=== PATIENT | male | born 1995 | race Caucasian/White ===

== ENCOUNTER 2020-02-21 23:52 | Emergency (ER) | payer BC, SELFPAY ==
[2020-02-22] VITALS (8 sets, daily range): BP systolic 122–153; BP diastolic 90–106; PULSE 66–86; RESP 16–29; TEMP 36.4; O2SAT 96–100
--- NOTE | 2020-02-22 00:15 | DI.RAD_ITS ---
EXAM: XR FOOT RT LIMITED CLINICAL HISTORY: ?foreign body. TECHNIQUE: 2D digital imaging was performed. COMPARISON: No exams were available for comparison FINDINGS: BONES: No acute fracture is present. No bony destructive lesion is seen. JOINTS: No dislocation present. SOFT TISSUE: Normal. No radiopaque foreign body. IMPRESSION: Unremarkable radiographs of the right foot. DATA REPOSITORY: RADIATION DOSE DELIVERED:
[2020-02-22 00:16] LABS: Abs Immature Grans 0.03 k/cumm (0.0-0.09); HCT 43.5 % (40.0-50.0); HGB 15.4 g/dL (13.5-17.5); Mean Corp. HGB Concentration 35.4 g/dL (32.0-36.0); Mean Corpuscular Hemoglobin 30.4 pg (27.0-33.0); Mean Corpuscular Volume 85.8 fL (80-95); Mean Platelet Volume 10.3 fL (8.0-11.0); Platelet Count 301 x1000/uL (130-400); RBC 5.07 m/cumm (4.50-6.00); RBC Distribution Width 11.8 % (11.8-14.1); White Blood Cell Count 10.18 k/cumm (4.4-10.8)
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
[2020-02-22] MEDS: fentaNYL 100 MCG/2 ML VIAL IVP ×3 (00:24→02:16)
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
[2020-02-22 00:27] LABS: Absolute Lymphocyte Count 7.02 k/cumm (1.2-3.4); Absolute Monocyte Count 0.61 k/cumm (0.11-0.7); Absolute Neutrophil Count 2.34 k/cumm (1.2-6.7); Atypical Lymphocytes % 1; Diff Comment Manual Differential; RBC Morphology Normal
[2020-02-22 00:29] LABS: PTT Activated 18.5 sec (21.0-31.4); Prothrombin Time 10.2 sec (9.3-11.0)
[2020-02-22 00:30] LABS: ALT 48 U/L (16-63); AST 29 U/L (15-37); Albumin 3.8 g/dL (3.4-5.0); Alkaline Phosphatase 92 U/L (46-116); Anion Gap 9.5 mmol/L (3-11); BUN 20 mg/dL (7-18); Bilirubin, Total 1.1 mg/dL (0.2-1.0); CO2 27.5 mmol/L (21.0-32.0); CREATININE 1.79 mg/dL (0.70-1.30); Calcium 8.9 mg/dL (8.5-10.1); Chloride 104 mmol/L (98-107); Glucose 171 mg/dL (74-106); Magnesium 2.1 mg/dL (1.8-2.4); Potassium 4.1 mmol/L (3.5-5.1); Sodium 141 mmol/L (136-145); Total Protein 7.1 g/dL (6.4-8.2)
[2020-02-22 00:31] LABS: ETHANOL BLOOD < 3.0 mg/dL (<3)
--- NOTE | 2020-02-22 00:44 | DI.VRAD_ITS ---
PROCEDURE INFORMATION: Exam: XR Left Foot Exam date and time: 02/22/2020 12:27 AM Age: 24 years old Clinical indication: Injury or trauma; Injury history: ? Fb, glass after punching a window; Initial encounter; Laceration; Foot; Right; Foreign body involvement not specified; Injury date: 02/22/20; Injury details: ? Fb S/P punching window TECHNIQUE: Imaging protocol: XR Left foot. Views: 1 or 2 views. COMPARISON: No relevant prior studies available. FINDINGS: Bones/joints: No fractures. Normal alignment is maintained in the midfoot, hindfoot, and forefoot. Joint spaces are well-maintained. No blastic or lytic lesions. No periostitis or osteolysis. No gross ankle joint effusion. No hindfoot coalition. Soft tissues: No gross soft tissue abnormalities. No radiopaque foreign bodies. Other findings: Normal mineralization. IMPRESSION: 1. No acute findings. 2. No radiopaque foreign bodies are identified. Dictated and Authenticated by: Palmer Maddox MD. Ordering:DEN De Luna MD
--- NOTE | 2020-02-22 00:47 | DI.VRAD_ITS ---
PROCEDURE INFORMATION: Exam: XR Right Forearm Exam date and time: 02/22/2020 12:24 AM Age: 24 years old Clinical indication: Injury or trauma; Injury history: Laceration, ? fb S/P punching window; Initial encounter; Arm, lower; Right; Injury date: 02/22/20; Patient HX: Pain and bleeding S/P punching window TECHNIQUE: Imaging protocol: XR Right forearm. Views: 2 views. COMPARISON: No relevant prior studies available. FINDINGS: Bones/joints: Proximal and distal radial ulnar alignment is normal. Elbow joint alignment is normal. No fractures. No blastic or lytic lesions. No elbow joint effusion. No periostitis or osteolysis. Soft tissues: Soft tissue air and swelling in the lateral aspect of the proximal forearm extending into the volar soft tissues of the elbow consistent with soft tissue laceration. No radiopaque foreign bodies are identified. There are few extrinsic densities over this region likely related to bandaging material. Other findings: Normal mineralization. Carpal relationships are normal. IMPRESSION: 1. No foreign bodies are identified radiographically. 2. Soft tissue laceration in the medial to volar proximal forearm and elbow with overlying dressing material. No intra-articular air to suggest joint penetration. No bony injuries. Dictated and Authenticated by: Palmer Maddox MD. Ordering:DEN De Luna MD
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
[2020-02-22] MEDS: HYDROmorphone 2 MG/ML VIAL 1 MG IVP ×2 (01:18→01:25)
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
== END 2020-02-22 02:20 | disposition short-term general hospital (02) ==
LOC: ER 02-22 01:43
PROVIDERS: Emergency Provider Emergency Medicine
DX: S51.811A Laceration without foreign body of right forearm, initial encounter (principal); S90.811A Abrasion, right foot, initial encounter; S55.911A Laceration of unspecified blood vessel at forearm level, right arm, initial encounter; W25.XXXA Contact with sharp glass, initial encounter; F51.5 Nightmare disorder
CPT/HCPCS: 36415; 80053; 86850; 86900; 86901; 90471; 96365; 96375; 96376; 99252; 99285; 73090; 73620; 80320; 83735; 85025; 85610; 85730; J0690; J3010

== ENCOUNTER 2021-08-01 11:27 | Emergency (ER) | payer SELFPAY ==
[2021-08-01 11:38] VITALS: BP 171/81; PULSE 69; RESP 18; TEMP 36.7; O2SAT 99
--- NOTE | 2021-08-01 12:15 | DI.RAD_ITS ---
Exam(s) XR FOOT LT COMPLETE EXAM: XR FOOT LT COMPLETE CLINICAL HISTORY: dropped manhole cover, mostly great toe. TECHNIQUE: 2D digital imaging was performed. COMPARISON: CR,XR XR FOOT RT LIMITED from 02/22/2020 FINDINGS: BONES: Nondisplaced fracture tuft of distal phalanx of the great toe. No additional fractures. No b mark destructive lesion is seen. JOINTS: No dislocation present. SOFT TISSUE: Normal. IMPRESSION: Nondisplaced fracture distal phalanx great toe. DATA REPOSITORY: RADIATION DOSE DELIVERED:
--- NOTE | 2021-08-01 12:29 | ED.GENADUL_ITS ---
Discharge Plan Disposition Patient Disposition: HOME Condition: Stable Discharge Details Clinical Impression: Fracture of toe, Subungual hematoma Primary Care Provider: Dona Andrews ED Provider: Abel Shaffer Home Meds and New Rx's Prescriptions: Continued clonazepam 0.5 mg tablet 0.5 mg PO QHS PRN (Reason: insomnia) Qty: 30 RF: 0 melatonin 10 mg capsule 20 mg PO HS PRNRF: 0 cholecalciferol (vitamin D3) 350 mcg (14,000 unit) capsule 350 mcg PO ONCE RF: 0 ascorbic acid (vitamin C) 500 mg tablet 500 mg PO DAILY RF: 0 acetaminophen [Acetaminophen Extra Strength] 500 mg tablet 1,000 mg PO Q6H PRNRF: 0 aspirin [Adult Low Dose Aspirin] 81 mg tablet,delayed release (DR/EC) 81 mg PO DAILY RF: 0 Discharge Instructions Instructions: Subungual Hematoma (ED), Toe Fracture (ED) Additional Instructions: [id number] Tylenol and/or Motrin as directed for discomfort. Rest, elevate, cool compresses every 2 hours for 20 minutes. Wear hu taping and postop shoe until reevaluation with orthopedics. Please watch for new or worsening symptoms and return to the ER for any concerns. I have given you the name and number of our local orthopedic team, please contact your office later today or tomorrow to discuss your ER visit need for outpatient reevaluation. Stand Alone Forms: Work Release Referrals: Jasbir Sheikh MD [ [facility] STAFF PHYSICIAN] - Medical Decision Making 25-year-old gentleman presents with a left great toe crush injury. Has a subungual hematoma which will need to be evacuated. Will obtain x-ray to rule bony involvement. Subungual hematoma evacuated without difficulty X-ray reveals a nondisplaced great toe fracture Discussed x-ray findings with patient. Plan is to hu tape the great and second toe and place into a postop shoe. Will place on the orthopedic list to help expedite outpatient orthopedic follow-up. Patient has no additional questions or concerns. Standard discharge and return precautions provided This documentation was generated using Hotchalkation system, please disregard any oddities of phrase or misspellings. Medical Records Medical records reviewed: Yes I reviewed the patient's medical records. Imaging Data Radiologic Study: Attestation: I personally reviewed and interpreted this imaging study as follows: Imaging: X-Ray Radiologist's impression: Exam(s) XR FOOT LT COMPLETE EXAM: XR FOOT LT COMPLETE CLINICAL HISTORY: dropped manhole cover, mostly great toe. TECHNIQUE: 2D digital imaging was performed. COMPARISON: CR,XR XR FOOT RT LIMITED from 02/22/2020 FINDINGS: BONES: Nondisplaced fracture tuft of distal phalanx of the great toe. No additional fractures. No bony destructive lesion is seen. JOINTS: No dislocation present. SOFT TISSUE: Normal. IMPRESSION: Nondisplaced fracture distal phalanx great toe. HPI General Mode of arrival: ambulatory . Date/Time Provider Initiated Documentation: 08/01/21 12:00 . Limitations to Documentation: no limitations . Information obtained by: patient . HPI Narrative: This is a 25-year-old gentleman, denies significant past medical history, presents to the ER for evaluation of a left foot injury, accidentally dropping a manhole on his left foot primarily his great toe this morning while at work. Denies any other injury, numbness, tingling, weakness. Has not taken any medication for his symptoms. He reports the pain is mild at rest but worse with ambulation, aching and throbbing in nature. Related Data Home Medications Medication Instructions Recorded Confirmed acetaminophen 500 mg tablet 1,000 mg PO Q6H PRN tab 03/15/21 08/01/21 ascorbic acid (vitamin C) 500 mg 500 mg PO DAILY 03/15/21 08/01/21 tablet aspirin 81 mg tablet,delayed 81 mg PO DAILY 03/15/21 08/01/21 release cholecalciferol (vitamin D3) 350 350 mcg PO ONCE 03/15/21 08/01/21 mcg (14,000 unit) capsule melatonin 10 mg capsule 20 mg PO HS PRN cap 03/15/21 08/01/21 clonazepam 0.5 mg tablet 0.5 mg PO QHS PRN #30 tab 04/05/21 08/01/21 Previous Rx's Medication Instructions Recorded clonazepam 0.5 mg tablet 0.5 mg PO QHS PRN #30 tab 04/05/21 Allergies Allergy/AdvReac Type Severity Reaction Status Date / Time No Known Allergies Allergy Unverified 08/01/21 11:43 General Stated Complaint: Orthopedic SAMIRA: 4 Review of Systems Musculoskeletal Musculoskeletal: Denies deformity, Reports arthralgias, Denies numbness, Reports stiffness and Denies tingling Integumentary/Breasts Skin/Breast: Denies rash Neurologic Neurologic: Denies numbness and Denies tingling [facility] Active Problem List Fracture of toe (Acute) Subungual hematoma (Acute) Medical History Concussion Laceration Obstructive sleep apnea Parasomnia PTSD (post-traumatic stress disorder) Somnambulism Surgical History Status post surgery multiple surgeries in 2019 for R arm injury Family History Other Heart disease paternal Father Hyperlipidemia Mother Essential hypertension Social History Smoking/Tobacco Use Status: Former Tobacco Use Smoking risk assessment performed?: Yes Alcohol Intake: current Alcohol Intake frequency: a few times a month Alcohol type: beer and hard liquor Drug use: Never Substance use type: does not use Household members: significant other Housing: house Number of Children: 0 current occupation: [employer] Pets and animals: No Current gender identity: male What type of physical activity do you participate in: walking Seatbelt use: always Do you feel safe at home: Yes Do you feel safe in your relationship?: Yes Exam Const General: cooperative, healthy appearing, comfortable and no acute distress Orientation: alert, awake and oriented x3 HENMT Head: normal to inspection, normocephalic and atraumatic Eyes General: appearance normal, both eyes and all related structures Conjunctivae: conjunctivae normal Neck Neck: normal visual inspection, trachea midline and supple Resp Effort & Inspection: normal respiratory effort and able to speak in complete sentences Cardio Rate: regular rate Rhythm: regular rhythm Skin General skin exam: no rashes or lesions noted Neuro General: patient alert, patient awake, moves all extremities and no focal motor deficits Cognition: normal cognition Speech: speech normal Gait: antalgic Motor: muscle tone normal throughout Sensory Exam: no sensory deficits noted Extrem General: full ROM and capillary refill normal Ankle/foot/toe images: 1. Subungual hematoma 2. Diffuse mild swelling, ecchymosis, tenderness. Skin is intact. 5 out of 5 strength. Neuro, vascular, tendon intact. Normal capillary refill Psych Appearance: grossly normal Mental Status: mental status grossly normal Course Vital Signs Vital signs: Vital Signs Temperature 36.7 C 08/01/21 11:38 Pulse 69 08/01/21 11:38 Respiratory Rate 18 08/01/21 11:38 Blood Pressure 171/81 H 08/01/21 11:38 Pulse Oximetry 99 08/01/21 11:38 Temperature 36.7 C 08/01/21 11:38 Temperature Source Skin 08/01/21 11:38 Pulse 69 08/01/21 11:38 Respiratory Rate 18 08/01/21 11:38 Respiratory Effort 08/01/21 11:42 Blood Pressure 171/81 H 08/01/21 11:38 Blood Pressure Position Sitting 08/01/21 11:38 Pulse Oximetry 99 08/01/21 11:38 Oxygen Delivery Method Room Air 08/01/21 11:38 Oxygen Flow Rate 0 08/01/21 11:38 Pain Level 4 08/01/21 11:38 Comment 08/01/21 11:38 Procedures Nail Trephination Location (toes): first digit Method of drainage: nail cautery Procedure successful: Yes Patient tolerated procedure: well Complications: other (None)
[2021-08-01 13:07] VITALS: BP 171/81; PULSE 69; RESP 18; TEMP 36.7; O2SAT 99
== END 2021-08-01 13:53 | disposition home or self-care (01) ==
PROVIDERS: Emergency Provider Physician Assistant; PCP Family Medicine
DX: S92.425A Nondisplaced fracture of distal phalanx of left great toe, initial encounter for closed fracture (principal); W20.8XXA Other cause of strike by thrown, projected or falling object, initial encounter
CPT/HCPCS: 11740; 99283; 73630

== ENCOUNTER 2025-03-08 19:02 | Emergency (ER) | payer OTHER, SELFPAY ==
[2025-03-08 19:07] VITALS: BP 133/82; PULSE 65; RESP 20; TEMP 36.4; O2SAT 99
[2025-03-08 19:46] VITALS: BP 133/82; PULSE 65; RESP 20; TEMP 36.4; O2SAT 99
[2025-03-08 19:50] LABS: Abs Immature Grans 0.05 10^3/uL (0.0-0.06); Absolute Lymphocyte Count 1.62 10^3/uL (1.2-3.4); Absolute Monocyte Count 0.87 10^3/uL (0.1-0.8); Basophils % 0.2 %; Eosinophils % 0.2 %; HCT 43.9 % (40.0-50.0); HGB 15.5 g/dL (13.5-17.5); Immature Grans % 0.4 %; Lymphocytes % 13.1 %; MCH 30.2 pg (27.0-33.0); MCHC 35.3 % (32.0-36.0); MCV 86 fL (80-95); MPV 10.1 fL (8.0-11.0); Neutrophils % 79.1 %; Platelet Count 185 10^3/uL (130-400); RBC 5.13 10^6/uL (4.36-5.78); RDW 11.5 % (11.8-14.1); RDW-SD 35.9 fL; WBC 12.38 10^3/uL (4.4-10.8)
[2025-03-08 19:51] LABS: Absolute Basophil Count 0.02 10^3/uL (0.0-0.2); Absolute Eosinophil Count 0.02 10^3/uL (0.0-0.7); Absolute Neutrophil Count 9.79 10^3/uL (1.2-6.7)
[2025-03-08] MEDS: Ondansetron 4 MG/2 ML VIAL IVP (19:54)
[2025-03-08] MEDS: ACETAMINOPHEN 1,000 MG/100 ML BTL 400 MG IVPB (19:54)
[2025-03-08] MEDS: Ketorolac 15 MG/ML VIAL IVP (19:54)
[2025-03-08] MEDS: Normal Saline 1,000 ML 1000 ML IV (19:54)
[2025-03-08 20:37] LABS: ALT 40 U/L (16-63); AST 22 U/L (15-37); Albumin 4.7 g/dL (3.4-5.0); Alkaline Phosphatase 76 U/L (46-116); Anion Gap 9.2 mmol/L (3-11); BUN 23 mg/dL (7-18); Bilirubin, Total 1.7 mg/dL (0.2-1.0); CO2 28.8 mmol/L (21.0-32.0); CREATININE 1.2 mg/dL (0.70-1.30); Calcium 9.6 mg/dL (8.5-10.1); Chloride 99 mmol/L (98-107); Estimated GFR 84.48 (mL/min/1.73m2); Glucose 106 mg/dL (74-106); Lipase 22 U/L (<78); Sodium 137 mmol/L (136-145); TSH (W/Ref FT4) 1.87 uIU/mL (0.36-3.74); Total Protein 8.2 g/dL (6.4-8.2)
--- NOTE | 2025-03-08 21:10 | W.ED.GENAD ---
Discharge Plan Disposition Patient Disposition: Home Condition: Good Discharge Details Clinical Impression: Acute dehydration Primary Care Provider: Michael Ruano ED Provider: George Key Home Meds and New Rx's Prescriptions: No Action clonazepam 0.5 mg tablet 0.5 mg PO QHS PRN (Reason: insomnia) Qty: 30 0RF Rx Instructions: administer 30 minutes before bedtime melatonin 10 mg capsule 20 mg PO HS PRN ascorbic acid (vitamin C) 500 mg tablet 500 mg PO DAILY acetaminophen [Acetaminophen Extra Strength] 500 mg tablet 1,000 mg PO Q6H PRN aspirin [Adult Low Dose Aspirin] 81 mg tablet,delayed release (DR/EC) 81 mg PO DAILY Discharge Instructions Instructions: Dehydration, Adult ED Additional Instructions: At this time you have been rehydrated, your vital signs are stable, and your laboratory workup is reassuring. Please make sure to drink plenty of fluids tomorrow throughout the day. Stay cool throughout the day. Do not be out in the hot heat for greater than 30 to 45 minutes at a time. If you notice any worsening of your symptoms, or any new symptoms such as vomiting, diarrhea, fever, chills, shortness of breath, chest pain, numbness, weakness, or fainting , please return immediately to the emergency department for reevaluation. Please follow up with your primary care provider as soon as possible for reassessment and reevaluation. As always, it was a pleasure participating in your medical care today. Stand Alone Forms: Work Release Referrals: Michael Ruano MD [Primary Care Provider, Medicine] [facility] General Date/Time Provider Initiated Documentation: 03/08/25 19:39. HPI Narrative: This is a pleasant 29-year-old male with no significant past medical history who presents today for headache and dehydration. Patient states that he was on the worksite today, and began feeling slightly weak and lightheaded with a mild headache at 10 AM. He notes that he did not drink much fluid yesterday. Symptoms continued throughout the day as he continued to work outside in the very hot very humid weather. At around 5 PM his symptoms worsened, he had worsening headache, as well as nausea and feeling quite fatigued. He had an episode or 2 of vomiting with some mild dizziness. Because of the symptoms he came to the ER for further assessment. He does get headaches regularly, and states that this does not feel overly atypical compared to normal but it is slightly worse than normal. The patient denies any headache red flags of worst headache of life, thunderclap headache, neck pain, fever, chills, concerning family history of polycystic kidney disease, Marfan syndrome, Madeleine-Danlos syndrome, abdominal aortic aneurysm, aortic dissection, or intracranial aneurysm. He denies any trauma. Related Data Home Medications ?Medication ?Instructions ?Recorded ?Confirmed acetaminophen 500 mg tablet 1,000 mg PO Q6H PRN 03/15/21 03/08/25 (Acetaminophen Extra Strength) ascorbic acid (vitamin C) 500 mg 500 mg PO DAILY 03/15/21 03/08/25 tablet aspirin 81 mg tablet,delayed 81 mg PO DAILY 03/15/21 03/08/25 release (Adult Low Dose Aspirin) melatonin 10 mg capsule 20 mg PO HS PRN 03/15/21 03/08/25 clonazepam 0.5 mg tablet 0.5 mg PO QHS PRN insomnia #30 tabs 04/05/21 03/08/25 Previous Rx's ?Medication ?Instructions ?Recorded clonazepam 0.5 mg tablet 0.5 mg PO QHS PRN insomnia #30 tabs 04/05/21 Allergies Allergy/AdvReac Type Severity Reaction Status Date / Time No Known Allergies Allergy Verified 03/08/25 19:06 General Stated Complaint: [facility] SAMIRA: 3 Exam Narrative Exam Narrative: 1.Const: Well-nourished, Well-developed, appearing stated age 2.Eyes: PERRL, no conjunctival injection, and symmetrical lids. 3.ENT: Atraumatic external nose and ears. Notably dry MM. Neck: Symmetric, trachea midline, No thyromegaly. Patient demonstrates good movement of cervical neck. There is no nuchal rigidity, no nuchal tenderness. Patient is able to flex the neck without any difficulty or significant pain. Negative Kernig's and Brudzinski sign. 4.CVS: +S1/S2, Peripheral pulses 2+ and equal in all extremities. Brisk capillary refill in all extremities. 5.RESP: Unlabored respiratory effort. Clear to auscultation bilaterally. No wheezes rales or rhonchi 6.GI: Soft, Nontender/Nondistended, No hepatosplenomegaly. No guarding or rebound. 7.MSK: Normocephalic/Atraumatic, Extremities w/o deformity or ttp No cyanosis or clubbing, Normal movement of all extremities 8.Skin: Warm, Dry. No rashes or lesions. 9.Neuro: frame bender II-XII grossly intact. Sensation grossly intact, no focal neurologic deficits. 10.Psych: (AAO) x3. Appropriate mood and affect Course Vital Signs Vital signs: Vital Signs Temperature 36.4 C L 03/08/25 19:07 Pulse 65 03/08/25 19:07 Respiratory Rate 20 03/08/25 19:07 Blood Pressure 133/82 03/08/25 19:07 Pulse Oximetry 99 03/08/25 19:07 Temperature 36.4 C L 03/08/25 19:46 Temperature Source Oral 03/08/25 19:46 Pulse 65 03/08/25 19:46 Respiratory Rate 20 03/08/25 19:46 Respiratory Effort Normal 03/08/25 19:45 Blood Pressure 133/82 03/08/25 19:46 Blood Pressure Position Sitting 03/08/25 19:46 Pulse Oximetry 99 03/08/25 19:46 Oxygen Delivery Method Room Air 03/08/25 19:46 Oxygen Flow Rate 0 03/08/25 19:46 Lab/Test Results Lab/Test Results: Laboratory Tests Range/Units 03/08/25 19:40 WBC (4.4-10.8) 10^3/uL 12.38 H RBC (4.36-5.78) 10^6/uL 5.13 Hgb (13.5-17.5) g/dL 15.5 Hct (40.0-50.0) % 43.9 MCV (80-95) fL 86 MCH (27.0-33.0) pg 30.2 MCHC (32.0-36.0) % 35.3 RDW (11.8-14.1) % 11.5 L Plt Count (130-400) 10^3/uL 185 MPV (8.0-11.0) fL 10.1 Immature Gran % % 0.4 Neutrophils % % 79.1 Lymphocytes % % 13.1 Monocytes % % 7.0 Eosinophils % % 0.2 Basophils % % 0.2 Nucleated RBC % (0.0-0.3) % 0.0 Absolute Neutrophils (1.2-6.7) 10^3/uL 9.79 H Absolute Lymphocytes (1.2-3.4) 10^3/uL 1.62 Absolute Monocytes (0.1-0.8) 10^3/uL 0.87 H Absolute Eosinophils (0.0-0.7) 10^3/uL 0.02 Absolute Basophils (0.0-0.2) 10^3/uL 0.02 Sodium (136-145) mmol/L 137 Potassium (3.5-5.1) mmol/L 4.0 Chloride (98-107) mmol/L 99 Carbon Dioxide (21.0-32.0) mmol/L 28.8 Anion Gap (3-11) mmol/L 9.2 BUN (7-18) mg/dL 23 H Creatinine (0.70-1.30) mg/dL 1.2 Est GFR (CKD-EPI 2020) (mL/min/1.73m2) 84.48 Glucose (74-106) mg/dL 106 Calcium (8.5-10.1) mg/dL 9.6 Total Bilirubin (0.2-1.0) mg/dL 1.7 H AST (15-37) U/L 22 ALT (16-63) U/L 40 Alkaline Phosphatase (46-116) U/L 76 Total Protein (6.4-8.2) g/dL 8.2 Albumin (3.4-5.0) g/dL 4.7 Lipase (<78) U/L 22 TSH (0.36-3.74) uIU/mL 1.87 Medical Decision Making This is a pleasant 29-year-old male with no significant past medical history who presents today for headache and dehydration. Patient states that he was on the worksite today, and began feeling slightly weak and lightheaded with a mild headache at 10 AM. He notes that he did not drink much fluid yesterday. Symptoms continued throughout the day as he continued to work outside in the very hot very humid weather. At around 5 PM his symptoms worsened, he had worsening headache, as well as nausea and feeling quite fatigued. He had an episode or 2 of vomiting with some mild dizziness. Because of the symptoms he came to the ER for further assessment. He does get headaches regularly, and states that this does not feel overly atypical compared to normal but it is slightly worse than normal. The patient denies any headache red flags of worst headache of life, thunderclap headache, neck pain, fever, chills, concerning family history of polycystic kidney disease, Marfan syndrome, Madeleine-Danlos syndrome, abdominal aortic aneurysm, aortic dissection, or intracranial aneurysm. He denies any trauma. Exam demonstrates dry mucous membranes, dehydrated appearing male, no neurologic deficits, no nuchal rigidity to suggest meningitis, no trauma to suggest intracranial bleed, no abdominal tenderness to suggest obstruction appendicitis or cholecystitis. Symptoms are concerning for mild heatstroke and dehydration secondary to working outside in the excessive heat and humidity today without significant personal hydration. We will rehydrate, evaluate for electrolyte abnormalities, treat with Tylenol Motrin, monitor closely and reassess. 10 PM On reassessment after liter fluids patient feels much better, vital signs stable, headache completely resolved. Patient to get up and ambulate, urine was light yellow in color. He is feeling well. BUN is elevated at 23, reflective of dehydration. Bilirubin slightly up at 1.7, however he normally resides higher than 1 for his bilirubin numbers, transaminases normal, no right upper quadrant tenderness to suggest cholecystitis. Lipase is normal. Thyroid function normal, no suggestion of hypothyroidism. Patient feels well after rehydration. Patient is requesting discharge home. Patient will be discharged with work note for reduced exposure to heat tomorrow. Discussed red flags for which to return. I have extensively reviewed the treatment plan and discharge instructions with the patient and their family. I have addressed all patient concerns at this time. The patient and family was made aware of what symptoms to monitor for that would warrant a return to the emergency department. Discussed the plan with the patient and family, they demonstrate verbal understanding and agreement with our assessment and plan at this time. The documentation in this chart was dictated using [employer] dictation software. Please excuse any dictation errors. PFSH All Active Problems (Updated 03/08/25 @ 21:13 by George Key DO) Acute dehydration (Acute) Fracture of toe (Acute) Subungual hematoma (Acute) Medical History (Updated 03/08/25 @ 21:13 by George Key DO) Eczema (02/19/97) Fracture of ulna (06/13/98) Nasal fracture (10/28/14) 08/29. ENT eval Laceration Concussion Somnambulism Parasomnia PTSD (post-traumatic stress disorder) Obstructive sleep apnea Surgical History Status post surgery multiple surgeries in 2019 for R arm injury Family History Other Heart disease paternal Father Hyperlipidemia Mother Essential hypertension Social History Smoking/Tobacco Use Status: Former Tobacco Use Smoking risk assessment performed?: Yes Alcohol Intake: current Alcohol Intake frequency: a few times a month Alcohol type: beer and hard liquor Drug use: Never Substance use type: does not use Household members: significant other Housing: house Number of Children: 0 current occupation: Construction [employer] Pets and animals: No Current gender identity: male What type of physical activity do you participate in: walking Seatbelt use: always Do you feel safe at home: Yes Do you feel safe in your relationship?: Yes
== END 2025-03-08 21:19 | disposition home or self-care (01) ==
PROVIDERS: Emergency Provider Student in an Organized Health Care Education/Training Program; PCP Family Medicine
DX: E86.0 Dehydration (principal)
CPT/HCPCS: 99283; 99284; 96374; 96375; 80053; 83690; 96361; 84443; 85025; J0131; J1885; J2405